=== PATIENT | female | born 1985 | race Caucasian/White ===

== ENCOUNTER 2023-06-27 18:42 | Emergency (ER) | payer MEDICAID ==
[~2023-06-27] VITALS: Ht 160 cm; Wt 90.9 kg
[2023-06-27 18:52] VITALS: TEMP 98.6
[2023-06-27 19:10] LABS: COVID AG,FIA SOURCE NASAL SWAB
[2023-06-27 19:24] LABS: RAPID GROUP A STREP NEGATIVE (NEGATIVE)
[2023-06-27 19:32] LABS: INFLUENZA TYPE A NEGATIVE FOR TYPE A (NEGATIVE); INFLUENZA TYPE B NEGATIVE FOR TYPE B (NEGATIVE)
[2023-06-27 20:34] LABS: SARS-COV2 (COVID) ANTIGEN,FIA Negative (Negative)
[2023-06-27] MEDS ORDERED: AMOX1TAB16 PO (20:55)
[2023-06-27] MEDS ORDERED: IBUP-1492 PO (20:55)
[2023-06-27 21:05] VITALS: BP 128/64; PULSE 87; RESP 18
== END 2023-06-27 21:12 | disposition home or self-care (01) ==
LOC: EMS 18:45
DX: J01.00 Acute maxillary sinusitis, unspecified (principal); Z88.5 Allergy status to narcotic agent; Z91.040 Latex allergy status; Z20.822 Contact with and (suspected) exposure to COVID-19
CPT/HCPCS: 87430; 87804; 99283

== ENCOUNTER 2024-01-06 08:03 | Emergency (ER) | payer MEDICAID ==
[~2024-01-06] VITALS: Ht 162.6 cm; Wt 91.0 kg
[~2024-01-06 08:03] MED LIST: AMOX-457 PO
[2024-01-06 08:13] VITALS: TEMP 99.1
[2024-01-06 08:29] VITALS: BP 114/62; PULSE 84; RESP 16; O2SAT 99
[2024-01-06 08:36] LABS: COVID AG,FIA SOURCE NASAL SWAB
[2024-01-06] MEDS ORDERED: AMOX250C4 PO (08:46)
[2024-01-06] MEDS ORDERED: BENZ-227 PO (08:46)
[2024-01-06 09:07] LABS: SARS-COV2 (COVID) ANTIGEN,FIA Negative (Negative)
[2024-01-06 09:08] LABS: INFLUENZA TYPE A NEGATIVE FOR TYPE A (NEGATIVE); INFLUENZA TYPE B NEGATIVE FOR TYPE B (NEGATIVE)
[2024-01-06 09:13] LABS: RAPID GROUP A STREP NEGATIVE (NEGATIVE)
== END 2024-01-06 09:28 | disposition home or self-care (01) ==
LOC: EMS 08:15
DX: J06.9 Acute upper respiratory infection, unspecified (principal); B97.89 Other viral agents as the cause of diseases classified elsewhere; H92.02 Otalgia, left ear; Z88.5 Allergy status to narcotic agent; Z91.040 Latex allergy status; Z20.822 Contact with and (suspected) exposure to COVID-19
CPT/HCPCS: 87430; 87804; 99283

== ENCOUNTER 2025-01-03 18:29 | Inpatient (IN) | payer MEDICAID ==
[~2025-01-03] VITALS: Ht 165.1 cm; Wt 103.5 kg
[~2025-01-03 18:29] MED LIST changes: +AMOX250C4 PO; +BENZ-227 PO; +FentaNYL CITRATE PF 100 MCG/2 ML VIAL IM ONE; +MIDAZOLAM HCL 2 MG/2 ML VIAL IVP ONE
[2025-01-03 18:54] LABS: COVID AG,FIA SOURCE NASAL SWAB
[2025-01-03 18:59] LABS: PLATELET COUNT (AUTO) 275 K/uL (150-450); RED BLOOD CELL COUNT(AUTO) 4.85 MIL/uL (4.00-5.20); RED CELL DISTRIBUTION WIDTH 13.2 % (11.5-14.5); WHITE BLOOD COUNT (AUTO) 7.9 K/uL (4.5-11.0)
[2025-01-03 19:05] LABS: CALCIUM, TOTAL 8.9 mg/dL (8.8-10.5); CREATININE 0.70 mg/dL (0.60-1.30); GLOMERULAR FILTR. RATE CALC > 60 mL/min (>60); GLUCOSE,RANDOM 157 mg/dL (70-110); SODIUM SERUM 141 mmol/L (136-145); UREA NITROGEN, BLOOD 11 mg/dL (7-18)
[2025-01-03 19:21] LABS: INFLUENZA TYPE A NEGATIVE FOR TYPE A (NEGATIVE); INFLUENZA TYPE B NEGATIVE FOR TYPE B (NEGATIVE); SARS-COV2 (COVID) ANTIGEN,FIA Negative (Negative)
[2025-01-03 19:22] LABS: ASPARTATE AMINOTRANSFERASE 865 U/L (15-37); HCG,QUANTITATIVE < 1 mIU/mL (0-6); TOTAL PROTEIN, SERUM 6.9 g/dL (6.4-8.2)
[2025-01-03] MEDS: ONDANSETRON HCL 4 MG/2 ML VIAL IVP ONE (20:00)
[2025-01-03] MEDS: SODIUM CHLORIDE 0.9% 1,000 ML IV ONE (20:03)
[2025-01-03 20:11] LABS: APPEARANCE,URINE TURBID (CLEAR); GLUCOSE, URINE (UA) NEGATIVE (NEGATIVE); LEUKOCYTE ESTERASE ,URINE SMALL (NEGATIVE); NITRATE,URINE NEGATIVE (NEGATIVE); OCCULT BLOOD,URINE LARGE (NEGATIVE); SPECIFIC GRAVITIY, URINE 1.037 (1.003-1.030)
[2025-01-03 20:31] LABS: SULFOSALICYLIC ACID,URINE 4+ (Negative)
[2025-01-03 20:33] LABS: SQUAMOUS EPITHELIAL CELL,UR Many /LPF (None Seen)
[2025-01-03] MEDS: METOCLOPRAMIDE HCL 5 MG/ML 2 ML VIAL IVP ONE (22:09)
[2025-01-03] MEDS ORDERED: MAGNESIUM HYDROXIDE SUSPENSION 30 ML UDCUP PO PRN (23:15)
[2025-01-03] MEDS ORDERED: BISACODYL 10 MG RECTAL RECTAL SUPPOSITORY PR PRN (23:15)
[2025-01-03] MEDS ORDERED: IPRATROPIUM BROMIDE 0.5 MG/2.5 ML NEB SOLUTION NEB PRN (23:15)
[2025-01-03] MEDS ORDERED: ALBUTEROL SULFATE 2.5 MG/0.5 ML NEB SOLUTION NEB PRN (23:15)
[2025-01-03 23:38] VITALS: BP 108/56; PULSE 65; RESP 18; TEMP 97.7; O2SAT 95
[2025-01-04] MEDS: HEPARIN SODIUM,PORCINE 5,000 UNITS/ML VIAL SQ SCH
[2025-01-04] MEDS: SODIUM CHLORIDE 0.9% 1,000 ML IV ONE (00:12)
[2025-01-04] MEDS: PIPERACILLIN/TAZO 3.375 GM/D5W 50 ML IV SCH (00:19)
[2025-01-04 05:16] VITALS: BP 106/60; PULSE 76; RESP 18; TEMP 97.9; O2SAT 93
[2025-01-04] MEDS: ACETAMINOPHEN 325 MG TABLET PO PRN (05:44)
[2025-01-04] MEDS: ONDANSETRON HCL 4 MG/2 ML VIAL IVP PRN (05:47)
[2025-01-04 06:37] LABS: PLATELET COUNT (AUTO) 251 K/uL (150-450); RED BLOOD CELL COUNT(AUTO) 4.70 MIL/uL (4.00-5.20); RED CELL DISTRIBUTION WIDTH 13.4 % (11.5-14.5); WHITE BLOOD COUNT (AUTO) 5.1 K/uL (4.5-11.0)
[2025-01-04 06:46] LABS: ASPARTATE AMINOTRANSFERASE 519 U/L (15-37); CALCIUM, TOTAL 8.5 mg/dL (8.8-10.5); CREATININE 0.78 mg/dL (0.60-1.30); GLOMERULAR FILTR. RATE CALC > 60 mL/min (>60); GLUCOSE,RANDOM 162 mg/dL (70-110); SODIUM SERUM 141 mmol/L (136-145); TOTAL PROTEIN, SERUM 6.6 g/dL (6.4-8.2); UREA NITROGEN, BLOOD 11 mg/dL (7-18)
[2025-01-04 08:21] VITALS: BP 106/53; PULSE 59; RESP 18; TEMP 98.1; O2SAT 95
[2025-01-04] MEDS: DOCUSATE SODIUM 100 MG CAPSULE PO SCH (09:00)
[2025-01-04] MEDS ORDERED: GADOTERATE MEGLUMINE 10 MMOL/20 ML VIAL IVP ONE (09:37)
[2025-01-04] MEDS: PANTOPRAZOLE SODIUM 40 MG DR TABLET PO SCH (10:46)
[2025-01-04 16:28] VITALS: BP 126/63; PULSE 63; RESP 18; TEMP 97.5; O2SAT 98
[2025-01-04 19:17] VITALS: BP 101/63; PULSE 65; RESP 18; TEMP 97.7; O2SAT 95
[2025-01-04] MEDS ORDERED: SODIUM CHLORIDE 0.9% 500 ML IV ONE (23:09)
[2025-01-05 05:19] VITALS: BP 115/62; PULSE 58; RESP 18; TEMP 98.4; O2SAT 95
[2025-01-05 07:35] LABS: PLATELET COUNT (AUTO) 238 K/uL (150-450); RED BLOOD CELL COUNT(AUTO) 4.60 MIL/uL (4.00-5.20); RED CELL DISTRIBUTION WIDTH 13.7 % (11.5-14.5); WHITE BLOOD COUNT (AUTO) 5.8 K/uL (4.5-11.0)
[2025-01-05] MEDS ORDERED: RINGERS SOLUTION,LACTATED 1,000 ML IV ONE ×2 (07:42→09:23)
[2025-01-05] MEDS: CHLORHEXIDINE GLUCONATE 2% TOWELETTE [2'S/6'S] TP ONE (08:10)
[2025-01-05] MEDS: ETHYL ALCOHOL 62% ANTISEPTIC NASAL SANITIZER 0.6 ML AMPUL NASAL ONE (08:10)
[2025-01-05 08:12] VITALS: BP 99/60; PULSE 53; RESP 19; TEMP 97.9; O2SAT 99
[2025-01-05] MEDS: IOHEXOL 240 MG/ML 20 ML VIAL ONE (09:31)
[2025-01-05] MEDS: BUPIVACAINE 0.25%/EPI 1:200,000/PF 30 ML VIAL ONE (09:31)
[2025-01-05] MEDS ORDERED: ROCURONIUM BROMIDE 10 MG/ML 5 ML VIAL IV ONE (09:57)
[2025-01-05] MEDS ORDERED: ONDANSETRON HCL 4 MG/2 ML VIAL IVP ONE (09:57)
[2025-01-05] MEDS ORDERED: PROPOFOL 1% 20 ML VIAL IVP ONE (09:57)
[2025-01-05] MEDS ORDERED: DEXAMETHASONE SOD PHOS 4 MG/ML VIAL IVP ONE (09:57)
[2025-01-05] MEDS ORDERED: KETOROLAC TROMETHAMINE 60 MG/2 ML VIAL IM ONE (09:57)
[2025-01-05] MEDS ORDERED: METOCLOPRAMIDE HCL 5 MG/ML 2 ML VIAL IM ONE (09:57)
[2025-01-05] MEDS ORDERED: SUGAMMADEX SODIUM 200 MG/2 ML VIAL IVP ONE (09:57)
[2025-01-05] MEDS ORDERED: LIDOCAINE/PF 2% 5 ML VIAL IM ONE (09:57)
[2025-01-05 15:42] VITALS: BP 122/73; PULSE 75; RESP 19; TEMP 97.9; O2SAT 99
[2025-01-05 20:00] VITALS: BP 122/86; PULSE 93; RESP 20; TEMP 99.3; O2SAT 97
[2025-01-05] MEDS: ZOLPIDEM TARTRATE 5 MG TABLET PO PRN (21:14)
[2025-01-06 04:00] VITALS: BP 119/66; PULSE 68; RESP 18; TEMP 99; O2SAT 98
[2025-01-06 07:03] LABS: PLATELET COUNT (AUTO) 282 K/uL (150-450); RED BLOOD CELL COUNT(AUTO) 4.61 MIL/uL (4.00-5.20); RED CELL DISTRIBUTION WIDTH 13.5 % (11.5-14.5); WHITE BLOOD COUNT (AUTO) 10.1 K/uL (4.5-11.0)
[2025-01-06 07:30] VITALS: BP 119/87; PULSE 66; RESP 20; TEMP 98.6; O2SAT 98
[2025-01-06] MEDS ORDERED: AMOX-457 PO (13:17)
[2025-01-06] MEDS ORDERED: HYDR2TAB37 PO (13:17)
[2025-01-06] MEDS ORDERED: LACT10SO85 PO (13:17)
[2025-01-06 15:25] VITALS: BP 131/95; PULSE 90; RESP 18; TEMP 98.2; O2SAT 98
== END 2025-01-06 16:26 | disposition home or self-care (01) | DRG 263 ==
LOC: EMS 18:29 → EDH 22:31 → 4E 23:44
PROVIDERS: ADMIT Internal Medicine; ATTEND Internal Medicine
PROC: BF131ZZ Fluoroscopy of Gallbladder and Bile Ducts using Low Osmolar Contrast (ICD-10-PCS; 2025-01-05)
PROC: 0FT44ZZ Resection of Gallbladder, Percutaneous Endoscopic Approach (ICD-10-PCS; principal; 2025-01-05 08:51)
DX: K80.12 Calculus of gallbladder with acute and chronic cholecystitis without obstruction (principal); E88.09 Other disorders of plasma-protein metabolism, not elsewhere classified; E66.01 Morbid (severe) obesity due to excess calories; E87.6 Hypokalemia; K76.0 Fatty (change of) liver, not elsewhere classified; Z20.822 Contact with and (suspected) exposure to COVID-19; Z88.5 Allergy status to narcotic agent; Z91.040 Latex allergy status; Z87.442 Personal history of urinary calculi; Z68.38 Body mass index [BMI] 38.0-38.9, adult; Z79.899 Other long term (current) drug therapy
CPT/HCPCS: 74176; 74183; 76705; 80048; 80053; 80076; 81001; 81002; 83690; 84702; 85025; 87081; 87804; 96361; 96374; 96375; 99285; G0378; J0690; J1100; J1171; J1644; J1885; J2250; J2405; J2543; J2704; J2765; J3010; J3490; J7030; J7040; J7120; Q9966; 36415-L1; 36415-TC